=== PATIENT | female | born 2000 | race African-American/Black ===

== ENCOUNTER 2023-02-13 01:35 | Emergency (ER) | payer OTHER ==
[~2023-02-13] VITALS: Ht 170.2 cm; Wt 95.7 kg
[2023-02-13] MEDS ORDERED: NS 1,000 ML IV ONE (01:45)
[2023-02-13 01:51] VITALS: TEMP 98.8
[2023-02-13 02:35] LABS: ETHYL ALCOHOL (ETHANOL) 0.151 % (0.000-0.010)
[2023-02-13 02:36] LABS: HCG, SERUM QUALITATIVE NEGATIVE (NEGATIVE)
[2023-02-13 04:18] VITALS: BP 118/78; O2SAT 98
== END 2023-02-13 04:20 | disposition home or self-care (01) ==
LOC: M ED 01:35
DX: F10.129 Alcohol abuse with intoxication, unspecified (principal)